=== PATIENT | male | born 1960 | race Hispanic/Latino ===

== ENCOUNTER 2020-05-01 17:17 | Emergency (ER) | payer BC ==
[2020-05-01 17:29] VITALS: BP 148/88
--- NOTE | 2020-05-01 18:19 | Cat Scan Report ---
NONENHANCED CT SCAN OF THE NECK: HISTORY: Concern for fishbone COMPARISON: None. TECHNIQUE: Routine CT of the neck is performed without intravenous contrast. All CT scans at this [facility] ation are performed using CT dose reduction for ALARA by means of automated exposure control CONTRAST: None FINDINGS: No radiopaque foreign body is seen in the hypopharynx, cervical esophagus and upper thoracic esophagu s. Skull Base: No significant abnormality. Parotid, Carotid, Retropharyngeal, Prevertebral, Pharyngeal Mucosal, and Centrifugal Station Operator Spaces: No abnorm al mass, enhancing lesion or other significant abnormality. Airway: Patent and without significant abnormality. Lymphatics: No lymphadenopathy. Vasculature: Few reactive lymph nodes bilaterally Osseous Structures: Disc osteophyte complex at C5-C6 disc level narrowing right neuroforamen Additional findings: Following of fluid in the left sphenoid sinus IMPRESSION: No radiopaque foreign body in the neck Signer Name: Arianne Garzon MD Signed: 05/01/2020 6:15 PM Workstation Name: [id number]
[2020-05-01] MEDS ORDERED: LIDOCAINE VISCOUS 2% 15 ML ORAL LIQD PO ONE (18:26)
[2020-05-01] MEDS ORDERED: ACETAMINOPHEN 325 MG/10.15 ML ORAL LIQD UNIT DOSE PO ONE (18:26)
--- NOTE | 2020-05-01 18:47 | Emergency Department Report ---
ED General Adult HPI - General Chief complaint: Dental/Oral Stated complaint: FISH BONE IN THROAT Time Seen by Provider: 05/01/20 17:36 Source: patient, family Mode of arrival: Ambulatory Limitations: No Limitations - History of Present Illness Initial comments: Patient is a 60-year-old male presents emergency room with complaints of a possible fishbone in his throat since 4 days ago. He states that he felt like it got caught in his throat 4 days ago. He states that whenever he eats or drinks something he feels some discomfort when he swallows. He is concerned that it is still stuck. He states that he does have a sore throat. He states he has still been continuing to tolerate p.o. intake since then. He denies any vomiting, difficulty breathing, difficulty swallowing, hemoptysis, blood in his secretions, hematemesis, hematochezia, melena. He states that this happened once in the past and he was able to get it to go down with a piece of bread. No other past medical history. No allergies to medications. - Related Data Previous Rx's Medication Instructions Recorded Last Taken Type Acetaminophen 650 mg PO Q8HR PRN #1 bottle 05/01/20 Unknown Rx Lidocaine Viscous 2% 15 ml MM Q6HR PRN #120 ml 05/01/20 Unknown Rx Allergies Allergy/AdvReac Type Severity Reaction Status Date / Time No Known Allergies Allergy Unverified 05/01/20 17:26 ED Review of Systems ROS: Stated complaint: FISH BONE IN THROAT Other details as noted in HPI Comment: All other systems reviewed and negative ED Past Medical Hx - Past Medical History Previous Medical History?: Yes Hx GERD: Yes - Surgical History Hx Cholecystectomy: Yes Additional Surgical History: Right lobectomy - Social History Smoking Status: Never Smoker Substance Use Type: None - Medications Home Medications: Home Medications Medication Instructions Recorded Confirmed Last Taken Type Acetaminophen 650 mg PO Q8HR PRN #1 bottle 05/01/20 Unknown Rx Lidocaine Viscous 2% 15 ml MM Q6HR PRN #120 ml 05/01/20 Unknown Rx ED Physical Exam - General Limitations: No Limitations General appearance: alert, in no apparent distress - Head Head exam: Present: atraumatic, normocephalic - Eye Eye exam: Present: normal appearance - ENT ENT exam: Present: normal orophraynx, mucous membranes moist - Respiratory Respiratory exam: Present: normal lung sounds bilaterally. Absent: respiratory distress, wheezes, rales, rhonchi, stridor, chest wall tenderness, accessory muscle use, decreased breath sounds, prolonged expiratory - Cardiovascular Cardiovascular Exam: Present: regular rate, normal rhythm, normal heart sounds. Absent: systolic murmur, diastolic murmur, rubs, gallop - Neurological Exam Neurological exam: Present: alert, oriented X3 - Psychiatric Psychiatric exam: Present: normal affect, normal mood - Skin Skin exam: Present: warm, dry, intact ED Course Vital Signs 05/01/20 17:28 Temperature 98.1 F Pulse Rate 114 H Respiratory 16 Rate Blood Pressure 148/88 [Right] O2 Sat by Pulse 95 Oximetry ED Medical Decision Making - Radiology Data Radiology results: report reviewed NONENHANCED CT SCAN OF THE NECK: HISTORY: Concern for fishbone COMPARISON: None. TECHNIQUE: Routine CT of the neck is performed without intravenous contrast. All CT scans at this location are performed using CT dose reduction for ALARA by means of automated exposure control CONTRAST: None FINDINGS: No radiopaque foreign body is seen in the hypopharynx, cervical esophagus and upper thoracic esophagus. Skull Base: No significant abnormality. Parotid, Carotid, Retropharyngeal, Prevertebral, Pharyngeal Mucosal, and Mast icator Spaces: No abnormal mass, enhancing lesion or other significant abnormality. Airway: Patent and without significant abnormality. Lymphatics: No lymphadenopathy. Vasculature: Few reactive lymph nodes bilaterally Osseous Structures: Disc osteophyte complex at C5-C6 disc level narrowing right neuroforamen Additional findings: Following of fluid in the left sphenoid sinus IMPRESSION: No radiopaque foreign body in the neck Signer Name: Arianne Garzon MD Signed: 05/01/2020 6:15 PM Workstation Name: [id number] Transcribed By: BS Dictated By: Arianne Johnson MD Electronically Authenticated By: Arianne Johnson MD Signed Date/Time: 05/01/201814 DD/ 10 TD/TT: - Medical Decision Making Patient is a 60-year-old male presents emergency room with complaints of a possible fishbone in his throat since 4 days ago. He states that he felt like it got caught in his throat 4 days ago. He states that whenever he eats or drinks something he feels some discomfort when he swallows. He is concerned that it is still stuck. He states that he does have a sore throat. He states he has still been continuing to tolerate p.o. intake since then. He denies any vomiting, difficulty breathing, difficulty swallowing, hemoptysis, blood in his secretions, hematemesis, hematochezia, melena. . He states that this happened once in the past and he was able to get it to go down with a piece of bread. No other past medical history. No allergies to medications. No abnormality on physical examination as documented in chart. CT neck without contrast ordered to rule out foreign body and shows No radiopaque foreign body in the neck. Patient given viscous lidocaine and liquid Tylenol while in the emergency department and was able to tolerate p.o. intake without difficulty. Patient given prescription for viscous lidocaine and Tylenol. Advised patient Please take medication as prescribed as needed. Please follow-up with a ENT doctor. Please follow-up with a primary care doctor. Return to emergency room for any new or worsening symptoms. Critical care attestation.: If time is entered above; I have spent that time in minutes in the direct care of this critically ill patient, excluding procedure time. ED Disposition Clinical Impression: Throat discomfort Disposition: DC-01 TO HOME OR SELFCARE Is pt being admited?: No Does the pt Need Aspirin: No Condition: Stable Additional Instructions: Please take medication as prescribed as needed. Please follow-up with a ENT doctor. Please follow-up with a primary care doctor. Return to emergency room for any new or worsening symptoms. Prescriptions: Acetaminophen 650 mg PO Q8HR PRN #1 bottle PRN Reason: throat pain Lidocaine Viscous 2% 15 ml MM Q6HR PRN #120 ml PRN Reason: throat discomfort Referrals: MANJEET BURKS MD [Staff Physician] - 2-3 Days [facility] [Provider Group] - 2-3 Days your, primary care doctor [Other] - 2-3 Days Time of Disposition: 18:43 Print Language: MALAYSIAN
== END 2020-05-01 19:22 | disposition home or self-care (01) ==
LOC: ED 17:17
DX: R07.0 Pain in throat (principal); K21.9 Gastro-esophageal reflux disease without esophagitis; Z98.890 Other specified postprocedural states; Z79.899 Other long term (current) drug therapy
CPT/HCPCS: 70490; 99283